=== PATIENT | female | born 1990 | race Caucasian/White ===

== ENCOUNTER 2023-01-08 08:53 | Day surgery (SDC) | payer BC ==
[~2023-01-08] VITALS: Ht 172.7 cm; Wt 134.0 kg
[2023-01-08 09:24] VITALS: BP 144/73
[2023-01-08] MEDS ORDERED: JENCYCLA0.35 MG PO (09:26)
[2023-01-08] MEDS ORDERED: OMEPRAZOLE10 MG PO (09:26)
[2023-01-08 10:28] VITALS: BP 129/89
--- NOTE | 2023-01-08 10:49 | NUR ---
01/08/23 1049 Araceli Cobb 1015- PT ARRIVES TO PACU, LEFT LATERAL POSITION. PT AWAKE, ANSWERING QUESTIONS APPROPRIATELY. LR INFUSING TO RFA IV. O2 AT 3L PER NC. ABD SOFT, NON DISTENDED. ALL MONITORS IN PLACE. 1018- PT MOVED TO ROOM AIR, TOLERATING WELL. WILL CONTINUE TO MONITOR. 1020- PT STATES "HOW LONG DO I NEED TO BE IN HERE? I FEEL LIKE I CAN GET DRESSED". PT EDUCATED ON VITAL SIGN NEED AND DR HANNA TO TALK TO PT. 1025- DR HANNA AT BEDSIDE. VITAL SIGNS STABLE. PT DISCONNECTED FROM MONITORS, UP TO SIDE OF BED TO GET DRESSED. RIDE CALLED FOR PT. 1030- PT DRESSED AND READY. VERBALIZED UNDERSTANDING OF INSTRUCTIONS. SALINE LOCK REMOVED, TIP INTACT, DRESSING APPLIED. PT TRANSFERRED TO WHEEL CHAIR WITH STEADY GAIT, ALERT AND ORIENTED, NO SIGNS OF DISTRESS. PT TAKEN TO FAMILY CAR VIA WHEEL CHAIR WITH ALL BELONGINGS.
--- NOTE | 2023-01-08 20:22 | OR ---
[facility] [address], [place] [address] Signed DATE OF OPERATION: 01/08/2023 SURGEON: Elliott Hanna MD PREOPERATIVE DIAGNOSES: 1. Recent severe epigastric and low substernal pain, improved with PPI medication. 2. Right lower abdominal pain (resolved). POSTOPERATIVE DIAGNOSES: Small hiatal hernia, mild distal esophagitis, mild proximal gastritis. PROCEDURE: Esophagogastroduodenoscopy with biopsy. ANESTHESIA: Intravenous sedation; fentanyl 100 mcg and Versed 5 mg. 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, now part-time at [employer] in [place]. She lives in [place]. She is a patient of DEVEN Bravo. The patient had recent episode of severe epigastric pain without associated dysphagia. She did have good response ultimately to PPI medication. She additionally had right lower abdominal pain, ultimately attributed to fibroids of the uterus for which medication has been beneficial. She was on PPI medication with much benefit initially and has variably been taking that since that time. She is admitted at this time to undergo upper endoscopy to better characterize the source of her problem. We are mindful of the possibility of biliary disease and a gallbladder ultrasound in the past has show no evidence of stones. She understands the risk of upper endoscopy including but not limited to bleeding, infection, and perforation and wished to proceed. Of special note, the patient was on persistent high-dose Motrin ingestion in the months preceding her episode of severe pain and she has discontinued NSAIDs entirely also likely allowing for benefit. Additionally, a CT scan performed on December 06, 2022, showed only a 2 mm nonobstructing calculus in the upper pole of the left kidney, but no hydronephrosis and no other findings of concern other than thickening of the gastroduodenal junction. Evaluation of the gastroduodenal junction on endoscopy is anticipated. FINDINGS: Electronically Signed By: ELLIOTT HANNA MD 01/08/232021 PATIENT NAME: DARYL COLLIER OPERATIVE REPORT DATE OF : 88 REPORT #: [id number] PHYSICIAN: ELLIOTT HANNA MD PCP: MARIA ESTHER LESLIE REPORT IS CONFIDENTIAL AND NOT TO BE RELEASED WITHOUT AUTHORIZATION [facility] [address], [place] [address] Signed There was no sign of ulcer or neoplasm and no specific thickening of the gastroduodenal junction proper. Retroflexed view did confirm mild proximal gastritis and a small hiatal hernia. There was no evidence of Wheeler's epithelium and CLOtest was negative. The duodenum and esophagus were biopsied. The distal esophagus had mild inflammation. PROCEDURE IN DETAIL: The patient was brought to the endoscopy suite, given topical lidocaine hypopharyngeal anesthesia and placed in lateral decubitus position. She was given intravenous sedation with full cardiopulmonary monitoring to the point of slurred speech and nystagmus. A bite block was placed. An Olympus video upper endoscope was passed in the hypopharynx. Vocal cords were normal. Scope was advanced to the stomach into the esophagus without problem. Examination throughout showed it to be reasonably normal. The distal portion had mild minimal inflammation, but no sign of Wheeler's epithelium, stricture or other abnormalities. Scope was passed in the stomach without problem. The stomach was insufflated. Rugal folds appeared normal. The antrum was normal as was the pylorus. The scope was passed through the pylorus into the duodenum, which appeared normal. Biopsies were taken of the duodenum to assess for celiac disease. The scope was withdrawn and biopsies taken of the antrum and subsequently, the upper stomach which showed mild inflammation. CLOtest biopsies were obtained as well. Retroflexed view confirmed a small hiatal hernia at the GE junction. Scope was straightened, withdrawn. Biopsies taken of the distal esophagus and ultimately the mid esophagus as well though it appeared normal. Scope was removed. The patient was taken to the recovery room in good condition. CONCLUDING DIAGNOSES: Small hiatal hernia with minimal distal esophagitis. No sign of ulceration. No specific abnormality of the gastroduodenal junction, certainly no ulcer or neoplasm. PLAN: Continue use of PPI medication would be reasonable if symptoms should occur. We will review further whether or not further evaluation should be undertaken regarding the gallbladder to include repeat ultrasound and possibly CCK HIDA test. Elliott Hanna MD /MODL /[id number] Electronically Signed By: ELLIOTT HANNA MD 01/08/232021 PATIENT NAME: DARYL COLLIER OPERATIVE REPORT DATE OF : 88 REPORT #: [id number] PHYSICIAN: ELLIOTT HANNA MD PCP: MARIA ESTHER LESLIE REPORT IS CONFIDENTIAL AND NOT TO BE RELEASED WITHOUT AUTHORIZATION [address] [address] Signed cc: DEVEN Bravo Copies: MARIA ESTHER LESLIE ~ Electronically Signed By: ELLIOTT HANNA MD 01/08/232021 PATIENT NAME: JENISE COLLIERN OPERATIVE REPORT DATE OF : 88 REPORT #: [id number] PHYSICIAN: ELLIOTT HANNA MD PCP: MARIA ESTHER LESLIE REPORT IS CONFIDENTIAL AND NOT TO BE RELEASED WITHOUT AUTHORIZATION
--- NOTE | 2023-01-15 09:18 | PATH ---
[facility] [address], [place] [address] Signed SPECIMEN(S): A DUODENAL BIOPSY SPECIMEN(S): B ANTRUM/PYLORUS BIOPSY SPECIMEN(S): C PROXIMAL STOMACH BIOPSY SPECIMEN(S): D LOWER ESOPHAGEAL BIOPSY SPECIMEN(S): E MIDDLE ESOPHAGEAL BIOPSY SPECIMEN SOURCE: A. DUODENAL BIOPSY B. ANTRUM/PYLORUS BIOPSY C. PROXIMAL STOMACH BIOPSY D. LOWER ESOPHAGEAL BIOPSY E. MIDDLE ESOPHAGEAL BIOPSY CLINICAL HISTORY: History of epigastric pain, reflux. Small hiatal hernia, mild esophagitis. FINAL PATHOLOGIC DIAGNOSIS: A. Duodenum, biopsies: - Unremarkable duodenal mucosa with focally prominent Hilda's glands, negative for active inflammation or significant villous blunting. B. Antrum/pylorus, biopsies: - Minimal chronic gastritis with vascular congestion and focal active inflammation. - No H. pylori bacteria are detected by HE stain. C. Proximal stomach, biopsies: - Minimal chronic gastritis, negative for active inflammation. D. Lower esophagus, biopsies: - Benign squamous mucosa with focal vascular congestion. - Negative for Wheeler's metaplasia, dysplasia or malignancy. E. Middle esophagus, biopsies: - Benign squamous esophageal mucosa with vascular congestion. - Negative for increased eosinophils. AMB MICROSCOPIC EXAMINATION: Histologic sections of all submitted blocks are examined by light microscopy. These findings, together with the gross examination, support the pathologic diagnosis. GROSS DESCRIPTION: A. The specimen, labeled and designated "Sue duodenum biopsy," is received PATIENT NAME: DARYL COLLIER PATHOLOGY DATE OF : 88 REPORT #: [id number] PHYSICIAN: CAL URIBE PCP: MARIA ESTHER LESLIE REPORT IS CONFIDENTIAL AND NOT TO BE RELEASED WITHOUT AUTHORIZATION [facility] [address], [place] [address] Signed in formalin and consists of two santiago soft tissue fragments, ranging from 0.2 cm. Entirely submitted in (A1). B. The specimen, labeled and designated "Ridling, antrum biopsy," is received in formalin and consists of three santiago soft tissue fragments, ranging from 0.1 to 0.3 cm. Entirely submitted in (B1). C. The specimen, labeled and designated "Ridling, proximal stomach biopsy," is received in formalin and consists of two santiago soft tissue fragments, ranging from 0.3 to 0.5 cm. Entirely submitted in (C1). D. The specimen, labeled and designated "Ridling, lower esophagus biopsy," is received in formalin and consists of two santiago soft tissue fragments, ranging from 0.1 to 0.3 cm. Entirely submitted in (D1). E. The specimen, labeled and designated "Ridling, middle esophagus biopsy," is received in formalin and consists of three santiago soft tissue fragments, ranging from 0.1 to 0.4 cm. Entirely submitted in (E1). JS (under the direct supervision of a pathologist) The Gross Description was prepared using a voice recognition system. The report was reviewed for accuracy; however, sound-alike word errors, addition and/or deletions may occur. If there is any question about this report, please contact Client Services. ADDITIONAL NOTES: Immunohistochemical and/or in situ hybridization studies if performed in this case included appropriate positive controls that reacted as expected. This test was developed and its performance characteristics determined by [facility]. It has not been cleared or approved by the U.S. Food and Drug Administration. The FDA has determined that such clearance or approval is not necessary. This test is used for clinical purposes. It should not be regarded as investigational or for research. [facility] is certified under the Clinical Laboratory Improvement Amendments of 1988 (CLIA) as qualified to perform high complexity clinical laboratory testing. PERFORMING LABORATORY: Technical component was performed by [facility], [address] [place] [address] (CLIA# [id number]). Professional interpretation was performed by [facility] [address] [id number] PATIENT NAME: DARYL COLLIER PATHOLOGY DATE OF : 88 REPORT #: [id number] PHYSICIAN: CAL URIBE PCP: MARIA ESTHER LESLIE REPORT IS CONFIDENTIAL AND NOT TO BE RELEASED WITHOUT AUTHORIZATION [facility] [address] [place] [id number] Signed Diagnostician: Mary Cardenas MD Pathologist Electronically Signed 01/15/2023 Copies: ~ PATIENT NAME: DARYL COLLIER PATHOLOGY DATE OF : 88 REPORT #: [id number] PHYSICIAN: CAL URIBE PCP: MARIA ESTHER LESLIE REPORT IS CONFIDENTIAL AND NOT TO BE RELEASED WITHOUT AUTHORIZATION
== END 2023-01-08 10:30 | disposition home or self-care (01) ==
LOC: OPS 08:53 → DS 08:54 → OPS 09:30
PROVIDERS: ATTEND Surgery
PROC: 0DB38ZX Excision of Lower Esophagus, Via Natural or Artificial Opening Endoscopic, Diagnostic (ICD-10-PCS; 2023-01-08)
PROC: 0DB98ZX Excision of Duodenum, Via Natural or Artificial Opening Endoscopic, Diagnostic (ICD-10-PCS; principal; 2023-01-08 09:30)
DX: K20.90 Esophagitis, unspecified without bleeding (principal); K44.9 Diaphragmatic hernia without obstruction or gangrene; E66.9 Obesity, unspecified; K29.50 Unspecified chronic gastritis without bleeding
CPT/HCPCS: 84703; G0500; J2250; J3010; J7121